=== PATIENT | male | born 1975 | race Caucasian/White ===

== ENCOUNTER 2019-09-08 01:31 | Emergency (ER) | payer MEDICAID ==
[~2019-09-08] VITALS: Ht 193 cm; Wt 165.6 kg
[2019-09-08 01:31] VITALS: BP_SYST 147
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
--- NOTE | 2019-09-08 01:31 | NUR ---
BROUGHT BACK TO BED #7 AND TRIAGED. REPORT GIVEN TO FRANCIS
--- NOTE | 2019-09-08 02:02 | NUR ---
DR MORLEY AT BEDSIDE FOR EVALUATION
[2019-09-08] MEDS ORDERED: GENTAMICIN SULFATE 0.3% Non-Formulary OPHT. 5 ML DROPS OP ONE (02:30)
--- NOTE | 2019-09-08 02:33 | NUR ---
PT PLACED AT EYE WASH STATION
[2019-09-08 03:02] VITALS: BP_SYST 134
--- NOTE | 2019-09-08 03:02 | NUR ---
Patient given written and verbal discharge instructions and verbalizes understanding. ER MD discussed with patient the results and treatment provided. Patient in stable condition. ID arm band removed. Rx of NONE given. Patient educated on pain management and to follow up with PMD. Pain Scale 0/10. Opportunity for questions provided and answered. Medication side effect fact sheet provided.
== END 2019-09-08 03:02 | disposition home or self-care (01) ==
LOC: SED 01:31
DX: T26.41XA Burn of right eye and adnexa, part unspecified, initial encounter (principal); X08.8XXA Exposure to other specified smoke, fire and flames, initial encounter; Y93.89 Activity, other specified; Y92.89 Other specified places as the place of occurrence of the external cause; Y99.8 Other external cause status
CPT/HCPCS: 99283

== ENCOUNTER 2021-06-29 21:08 | Emergency (ER) | payer MEDICAID, OTHER ==
[~2021-06-29] VITALS: Ht 193 cm; Wt 167.8 kg
[2021-06-29 21:35] VITALS: BP_SYST 148
[2021-06-30] MEDS ORDERED: HYDR-3917 PO (02:24)
[2021-06-30] MEDS ORDERED: IBUP-1969 PO (02:24)
[2021-06-30] MEDS ORDERED: ERYEYE RIGHT EYE (02:24)
[2021-06-30] MEDS ORDERED: ERYTHROMYCIN BASE 0.5% EYE OINT...G. ONE (02:27)
[2021-06-30] MEDS ORDERED: HYDROcodone/ACETAMIN 5-325 MG TAB (NORCO/ VICODIN) PO ONE (02:30)
[2021-06-30] MEDS ORDERED: ERYTHROMYCIN 0.5% EYE OINT 3.5 GM OP ONE (02:30)
[2021-06-30 02:43] VITALS: BP_SYST 148
== END 2021-06-30 02:43 | disposition home or self-care (01) ==
LOC: SED 21:08
DX: T15.01XA Foreign body in cornea, right eye, initial encounter (principal); Z79.899 Other long term (current) drug therapy; X58.XXXA Exposure to other specified factors, initial encounter; Y93.89 Activity, other specified; Y92.89 Other specified places as the place of occurrence of the external cause; Y99.8 Other external cause status
CPT/HCPCS: 99284